=== PATIENT | female | born 1950 ===

== ENCOUNTER 2018-06-07 07:43 | Day surgery (SDC) | payer MEDICARE ==
[2018-06-07] MEDS ORDERED: Lactated Ringer's 500 ML IV ONE ×2 (08:24→12:39)
[2018-06-07] MEDS ORDERED: Propofol 10 mg/ml Inj (20 ML) ONE (12:03)
[2018-06-07 12:56] VITALS: RESP 18; O2SAT 98
[2018-06-07 12:58] VITALS: BP 105/68; PULSE 71; TEMP 97.1
== END 2018-06-07 13:15 | disposition home or self-care (01) ==
LOC: H.ENDO 07:43
PROVIDERS: ATTEND Internal Medicine Gastroenterology
DX: Z12.11 Encounter for screening for malignant neoplasm of colon (principal); E11.9 Type 2 diabetes mellitus without complications; E78.5 Hyperlipidemia, unspecified; I10 Essential (primary) hypertension; K21.9 Gastro-esophageal reflux disease without esophagitis; K29.50 Unspecified chronic gastritis without bleeding; K31.89 Other diseases of stomach and duodenum; R10.13 Epigastric pain
CPT/HCPCS: 43239; 45378; 88305; J2001; J2704; J7120